=== PATIENT | female | born 1990 | race African-American/Black ===

== ENCOUNTER 2018-02-18 19:03 | Emergency (ER) | payer OTHER ==
[~2018-02-18] VITALS: Ht 162.6 cm; Wt 63.5 kg
[~2018-02-18 19:03] MED LIST: HYCET 7.5 MG-3473 ML PO; IBUPROFEN 600600 M1 PO; MUCINEX D TABL1 EAC1 PO; NAPROSYN500 MG PO; NORCO 5-325 TA1 EACH PO; PHENERGAN 25 MG25 M1 PO; PROMS25 WY RECTAL; TRAMADOL 50 MG50 MG PO; ZOFRAN ODT4 MG PO; ZPAK PO
[2018-02-18 20:40] LABS: ABSOLUTE NEUTROPHILS 13.9 thou/uL (1.4-8.2); BASOPHILS 0.3 % (0.0-2.0); EOSINOPHILS 0.7 % (0.0-3.0); HEMATOCRIT 39.7 % (37.0-47.0); HEMOGLOBIN 13.1 gm/dL (12.0-15.0); LYMPHOCYTES 4.3 % (24.0-44.0); MCHC 33.1 g/dL (28.0-37.0); MCV 84.5 fL (80.0-100.0); MONOCYTES 3.7 % (1.0-8.0); PLATELET COUNT 397 thou/uL (150-400); RBC 4.69 mil/uL (4.20-5.00); RDW 14.2 % (10.5-14.5); WBC 15.3 thou/uL (4.0-11.0)
[2018-02-18 20:56] LABS: CALCIUM 9.6 mg/dL (8.5-10.1); CREATININE 1.1 mg/dL (0.6-1.0); POTASSIUM 3.6 mmol/L (3.5-5.1)
[2018-02-18 21:00] LABS: ALBUMIN 4.4 g/dL (3.4-5.0); TOTAL BILIRUBIN 0.5 mg/dL (<0.1-1.0); TOTAL PROTEIN 8.5 g/dL (6.4-8.2)
[2018-02-18] MEDS ORDERED: ZOFRAN ODT8 MG PO (21:14)
[2018-02-18 21:46] LABS: URINE BILIRUBIN NEGATIVE (Negative); URINE BLOOD NEGATIVE (Negative); URINE CLARITY CLEAR; URINE COLOR YELLOW; URINE GLUCOSE-RANDOM* NEGATIVE (Negative); URINE KETONES 1+ (Negative); URINE LEUKOCYTES-REFLEX NEGATIVE (Negative); URINE NITRITE-REFLEX NEGATIVE (Negative); URINE PROTEIN (DIPSTICK) 1+ (Negative); URINE SPECIFIC GRAVITY >= 1.030 (1.005-1.035); URINE UROBILINOGEN 0.2 E.U./dl (0.2-1.0)
[2018-02-18 21:55] VITALS: BP 112/61
[2018-02-18 21:55] LABS: BACTERIA-REFLEX 1-9 Few /HPF (None Seen); CASTS None Seen /LPF (None Seen); CRYSTALS None Seen /LPF (None Seen); SQUAMOUS 4-10 Moderate /LPF (0-3); URINE RBC None Seen /HPF (0-2); URINE WBC-REFLEX 0-5 Rare /HPF (0-5)
== END 2018-02-18 22:00 | disposition home or self-care (01) ==
LOC: ER 19:03
PROVIDERS: Emergency Medicine
DX: R19.7 Diarrhea, unspecified (principal); R11.2 Nausea with vomiting, unspecified; R10.9 Unspecified abdominal pain; Z88.6 Allergy status to analgesic agent; Z87.891 Personal history of nicotine dependence

== ENCOUNTER 2018-03-26 17:26 | Emergency (ER) | payer OTHER ==
[~2018-03-26] VITALS: Ht 157.5 cm; Wt 63.5 kg
[~2018-03-26 17:26] MED LIST changes: +ZOFRAN ODT8 MG PO
[2018-03-26] MEDS ORDERED: CENTANY30 GM TOP (18:32)
[2018-03-26] MEDS ORDERED: MEDROLDOSEPACK PO (18:32)
[2018-03-26 18:38] VITALS: BP 110/71
== END 2018-03-26 18:40 | disposition home or self-care (01) ==
LOC: ER 17:26
DX: T63.441A Toxic effect of venom of bees, accidental (unintentional), initial encounter (principal); Z88.5 Allergy status to narcotic agent; Z87.891 Personal history of nicotine dependence